=== PATIENT | male | born 1960 | race Caucasian/White ===

== ENCOUNTER → 2016-12-08 | Outpatient (CLI) | payer OTHER ==
--- NOTE | 2016-12-08 14:35 | REP ---
WHOLE BODY RADIONUCLIDE BONE SCAN: HISTORY: Spondylosis. Right-sided low back pain. TECHNIQUE: 20.1 mCi technetium 99m MDP is injected and standard whole body bone scan imaging is acquired. SCINTIGRAPHIC FINDINGS: There is arthritic uptake in both acromioclavicular joints, both first carpometacarpal articulations, bilaterally in the first and second MTP joints and, in each midfoot articulations. There are degenerative disc uptake changes in the thoracic and lumbar spine. Posterior element uptake is seen in the facets on the right at L4-5 and on the left at L5-S1. There is uptake in bilateral kidneys and in the urinary bladder. There is no evidence to suggest skeletal metastatic disease. IMPRESSION: Degenerative disc and arthritic uptake in multiple sites as above. No evidence to suggest skeletal metastatic disease. Signed by Antony Wilson MD 12/08/2016 03:59 P
== END | disposition home or self-care (01) ==
LOC: M RAD 10:47
PROVIDERS: ATTEND Physical Medicine & Rehabilitation
DX: M47.892 Other spondylosis, cervical region (principal); M19.011 Primary osteoarthritis, right shoulder; M19.012 Primary osteoarthritis, left shoulder; M51.36 Other intervertebral disc degeneration, lumbar region; M51.37 Other intervertebral disc degeneration, lumbosacral region
CPT/HCPCS: 78306; A9503